=== PATIENT | female | born 1975 | race Caucasian/White ===

== ENCOUNTER 2019-02-22 11:20 | Observation (INO) | payer OTHER ==
[2019-02-22] MEDS ORDERED: SODIUM CHLORIDE 1,000 ML IV STA (12:14)
[2019-02-22] MEDS ORDERED: ONDANSETRON 4 MG/2 ML VIAL IVPB ONE (12:14)
[2019-02-22] MEDS ORDERED: ONDANSETRON 4 MG/2 ML VIAL ONE (12:51)
[2019-02-22 13:15] LABS: BASO % 0.2 % (0-2.0); EOS % 0.4 % (0-4.5); HEMATOCRIT 41.2 % (32.4-45.2); HEMOGLOBIN 13.4 GM/dl (10.7-15.3); LYMPH % 8.5 % (8-40); MCH 30.8 pg (25.7-33.7); MCHC 32.6 g/dl (32.0-36.0); MEAN CELL VOLUME 94.4 fl (80-96); MEAN PLT VOLUME 9.7 fl (7.5-11.1); MONO % 4.8 % (3.8-10.2); NEUT % 86.1 % (42.8-82.8); PLATELET COUNT 222 K/MM3 (134-434); RBC 4.37 M/mm3 (3.60-5.2); RDW 12.6 % (11.6-15.6); WHITE BLOOD COUNT 16.7 K/mm3 (4.0-10.8)
[2019-02-22 13:22] LABS: ALBUMIN 4.2 g/dl (3.4-5.0); ALK PHOS 86 U/L (45-117); ANION GAP 7 MMOL/L (8-16); BILIRUBIN,TOTAL 0.9 mg/dl (0.2-1); BLOOD UREA NITROGEN 10 mg/dl (7-18); CALCIUM 9.2 mg/dl (8.5-10); CHLORIDE 104 mmol/L (98-107); CO2 25 mmol/L (21-32); CREATININE 0.7 mg/dl (0.55-1.3); GLUCOSE,RANDOM 100 mg/dl (74-106); POTASSIUM 3.9 mmol/L (3.5-5.1); SGOT/AST 22 U/L (15-37); SGPT/ALT 23 U/L (13-61); SODIUM 136 mmol/L (136-145); TOT PROT 7.3 g/dl (6.4-8.2)
[2019-02-22 13:55] LABS: LIPASE 112 U/L (73-393)
[2019-02-22 15:16] LABS: EPITHELIAL CELLS 1+ /hpf
--- NOTE | 2019-02-22 18:19 | PDOC ---
History of Present Illness - General Chief Complaint: Pain Stated Complaint: BACK,STOMACH PAIN Time Seen by Provider: 02/22/19 11:24 History Source: Patient Exam Limitations: No Limitations - History of Present Illness Initial Comments: 02/22/19 18:16 CHIEF COMPLAINT: Diffuse abdominal pain with nausea, radiating to the back since this morning HISTORY OF PRESENT ILLNESS: 43-year-old female status post C-sections and hysterectomy, history of ovarian cysts, presents with onset today of diffuse abdominal pain, worse across the lower abdomen, radiating into the back. Patient also states her ears feel clogged, more on the right side. No fever or chills. No diarrhea. No dysuria. No hematuria. Pain is fairly constant, but does wax and wane to a minor degree. It radiates throughout the entire abdomen , but is more significant across the lower abdomen. REVIEW OF SYSTEMS: GENERAL/CONSTITUTIONAL: No fever or chills. No weakness. No weight change. HEAD, EYES, EARS, NOSE AND THROAT: No change in vision. No ear pain or discharge. Right ear feels congested, but not painful. No sore throat. CARDIOVASCULAR: No chest pain or shortness of breath. RESPIRATORY: No cough, wheezing, or hemoptysis. GASTROINTESTINAL: + Positive Nausea. No vomiting or diarrhea. No rectal bleeding. GENITOURINARY: No dysuria, frequency, or change in urination. MUSCULOSKELETAL: No joint or muscle swelling or pain. No neck or back pain. SKIN AND BREASTS: No rash or easy bruising. NEUROLOGIC: No headache, vertigo, loss of consciousness, or loss of sensation. PSYCHIATRIC: No depression or anxiety. ENDOCRINE: No increased thirst. No abnormal weight change. HEMATOLOGIC/LYMPHATIC: No anemia, easy bleeding, or history of blood clots. ALLERGIC/IMMUNOLOGIC: No hives or skin allergy. No latex allergy. Past History - Past Medical History Allergies/Adverse Reactions: Allergies Allergy/AdvReac Type Severity Reaction Status Date / Time No Known Allergies Allergy Verified 02/22/19 11:21 Home Medications: Ambulatory Orders NK [No Known Home Medication] 02/22/19 COPD: No - Surgical History Abdominal Surgery: Yes (RT OVARIAN CYST REMOVED) Other Surgical History: 02/22/19 18:19 sections - Immunization History Immunization Up to Date: No - Suicide/Smoking/Psychosocial Hx Smoking Status: No Smoking History: Never smoked Have you smoked in the past 12 months: No Number of Cigarettes Smoked Daily: 0 Information on smoking cessation initiated: No Hx Alcohol Use: No Drug/Substance Use Hx: No Substance Use Type: None *Physical Exam - Vital Signs Last Vital Signs Temp Pulse Resp BP Pulse Ox 98.4 F 69 20 129/77 99 02/22/19 17:53 02/22/19 17:53 02/22/19 17:53 02/22/19 17:53 02/22/19 17:53 - Physical Exam Comments: 02/22/19 20:09 GENERAL: The patient is awake, alert, and fully oriented, in no acute distress. She is complaining of significant abdominal pain. HEAD: Normal with no signs of trauma. EYES: Pupils equal, round and reactive to light, extraocular movements intact, sclera anicteric, conjunctiva clear. ENT: Ears normal, nares patent, oropharynx clear without exudates. Moist mucous membranes. NECK: Normal range of motion, supple without lymphadenopathy, JVD, or masses. LUNGS: Breath sounds equal, clear to auscultation bilaterally. No wheezes, and no crackles. HEART: Regular rate and rhythm, normal S1 and S2 without murmur, rub or gallop. ABDOMEN: Soft, diffuse tenderness, more on the left lower quadrant and suprapubic region, less in the right lower quadrant, no McBurney's tenderness, no Guzman sign. No abdominal guarding. No rebound tenderness. EXTREMITIES: Normal range of motion, no edema. No clubbing or cyanosis. No cords, erythema, or tenderness. NEUROLOGICAL: Cranial nerves II through XII grossly intact. Normal speech, normal gait. PSYCH: Normal mood, normal affect. SKIN: Warm, Dry, normal turgor, no rashes or lesions noted. ED Treatment Course - LABORATORY CBC & Chemistry Diagram: 02/22/19 12:54 02/22/19 12:54 - ADDITIONAL ORDERS Additional order review: Laboratory Results 02/22/19 02/22/19 14:00 12:54 Sodium 136 Potassium 3.9 Chloride 104 Carbon Dioxide 25 Anion Gap 7 L BUN 10 Creatinine 0.7 Creat Clearance w eGFR 92.22 Random Glucose 100 Calcium 9.2 Total Bilirubin 0.9 AST 22 ALT 23 Alkaline Phosphatase 86 Total Protein 7.3 Albumin 4.2 Lipase 112 Urine Color Yellow Urine Appearance Clear Urine pH 6.0 Urine Protein Negative Urine Glucose (UA) Negative Urine Ketones Trace Urine Blood Trace-lysed Urine Nitrite Negative Urine Bilirubin Negative Urine Urobilinogen 0.2 Ur Leukocyte Esterase Negative Urine RBC 0-3 Urine WBC 0-3 Ur Transition Epith Cell 1+ Urine Bacteria Few 02/22/19 12:54 RBC 4.37 MCV 94.4 MCHC 32.6 RDW 12.6 MPV 9.7 Neutrophils % 86.1 H Lymphocytes % 8.5 Monocytes % 4.8 Eosinophils % 0.4 Basophils % 0.2 - RADIOLOGY Radiology Studies Ordered: Category Date Time Status ABDOMEN & PELVIS CT W/O CONTR [CT] Stat CT Scan 02/22/19 14:36 Completed PELVIS(OTHER) US [US] Stat Ultrasound 02/22/19 16:16 Taken - Medications Given in the ED: ED Medications Discontinued Medications Generic Name Dose Route Start Last Admin Trade Name Freq PRN Reason Stop Dose Admin Sodium Chloride 1,000 mls @ 1,000 mls/hr 02/22/19 12:14 02/22/19 12:55 Normal Saline - IV 02/22/19 13:13 1,000 mls/hr ASDIR STA Administration Ondansetron HCl 4 mg 02/22/19 12:14 02/22/19 12:55 Zofran Injection IVPB 02/22/19 12:15 4 mg ONCE ONE Administration Medical Decision Making - Medical Decision Making 02/22/19 20:10 43-year-old female status post hysterectomy, still has her ovaries. History of prior ovarian cysts. Patient presents with severe abdominal pain, somewhat diffuse, but with focal tenderness in the left lower quadrant and suprapubic region on physical examination. CT scan of the abdomen and pelvis shows a collection in the left adnexal region. Pelvic ultrasound shows a 5.8 x 1.6 x 1.6 tubular structure adjacent to the left ovary consistent with an elongated ovarian cyst or hydrosalpinx. Good blood flow on Doppler imaging was found in the left ovary. White blood cell count is elevated to 16,700 with a left shift. Other laboratory studies are normal. Urinalysis negative for infection. Impression: Ongoing abdominal pain with left adnexal process of uncertain etiology. Patient given Toradol for pain. Blood cultures ordered. Ceftriaxone and Flagyl ordered. SERVICE ORDER TAKER consult requested. Further disposition pending SERVICE ORDER TAKER consult. Patient endorsed to Dr. Johnston at change of shift pending SERVICE ORDER TAKER consult and disposition. Laboratory Results - last 24 hr 02/22/19 02/22/19 02/22/19 12:54 12:54 14:00 WBC 16.7 H RBC 4.37 Hgb 13.4 Hct 41.2 MCV 94.4 MCH 30.8 MCHC 32.6 RDW 12.6 Plt Count 222 MPV 9.7 Absolute Neuts (auto) 14.4 Neutrophils % 86.1 H Lymphocytes % 8.5 Monocytes % 4.8 Eosinophils % 0.4 Basophils % 0.2 Sodium 136 Potassium 3.9 Chloride 104 Carbon Dioxide 25 Anion Gap 7 L BUN 10 Creatinine 0.7 Creat Clearance w eGFR 92.22 Random Glucose 100 Calcium 9.2 Total Bilirubin 0.9 AST 22 ALT 23 Alkaline Phosphatase 86 Total Protein 7.3 Albumin 4.2 Lipase 112 Urine Color Yellow Urine Appearance Clear Urine pH 6.0 Urine Protein Negative Urine Glucose (UA) Negative Urine Ketones Trace Urine Blood Trace-lysed Urine Nitrite Negative Urine Bilirubin Negative Urine Urobilinogen 0.2 Ur Leukocyte Esterase Negative Urine RBC 0-3 Urine WBC 0-3 Ur Transition Epith Cell 1+ Urine Bacteria Few 02/22/19 20:13 *DC/Admit/Observation/Transfer Diagnosis at time of Disposition: Left pelvic adnexal fluid collection - Referrals - Patient Instructions - Post Discharge Activity
[2019-02-22] MEDS ORDERED: KETOROLAC TROMETHAMINE 30 MG/1 ML VIAL IVPUSH ONE (19:14)
[2019-02-22] MEDS ORDERED: KETOROLAC TROMETHAMINE 30 MG/1 ML VIAL ONE (19:15)
[2019-02-22] MEDS ORDERED: SODIUM CHLORIDE 1,000 ML IV SCH (20:30)
[2019-02-22] MEDS ORDERED: CEFTRIAXONE 1,000 MG in DEXTROSE 5%-WATER - 50 ML IVPB ONE (20:30)
[2019-02-22] MEDS ORDERED: cefTRIAXone SODIUM 1 GM VIAL ONE (20:33)
--- NOTE | 2019-02-22 20:36 | PDOC ---
*Physical Exam - Vital Signs Last Vital Signs Temp Pulse Resp BP Pulse Ox 98.4 F 69 20 129/77 99 02/22/19 17:53 02/22/19 17:53 02/22/19 17:53 02/22/19 17:53 02/22/19 17:53 ED Treatment Course - LABORATORY CBC & Chemistry Diagram: 02/22/19 12:54 02/22/19 12:54 - ADDITIONAL ORDERS Additional order review: Laboratory Results 02/22/19 02/22/19 14:00 12:54 Sodium 136 Potassium 3.9 Chloride 104 Carbon Dioxide 25 Anion Gap 7 L BUN 10 Creatinine 0.7 Creat Clearance w eGFR 92.22 Random Glucose 100 Calcium 9.2 Total Bilirubin 0.9 AST 22 ALT 23 Alkaline Phosphatase 86 Total Protein 7.3 Albumin 4.2 Lipase 112 Urine Color Yellow Urine Appearance Clear Urine pH 6.0 Urine Protein Negative Urine Glucose (UA) Negative Urine Ketones Trace Urine Blood Trace-lysed Urine Nitrite Negative Urine Bilirubin Negative Urine Urobilinogen 0.2 Ur Leukocyte Esterase Negative Urine RBC 0-3 Urine WBC 0-3 Ur Transition Epith Cell 1+ Urine Bacteria Few 02/22/19 12:54 RBC 4.37 MCV 94.4 MCHC 32.6 RDW 12.6 MPV 9.7 Neutrophils % 86.1 H Lymphocytes % 8.5 Monocytes % 4.8 Eosinophils % 0.4 Basophils % 0.2 - Medications Given in the ED: ED Medications Discontinued Medications Generic Name Dose Route Start Last Admin Trade Name Freq PRN Reason Stop Dose Admin Sodium Chloride 1,000 mls @ 1,000 mls/hr 02/22/19 12:14 02/22/19 12:55 Normal Saline - IV 02/22/19 13:13 1,000 mls/hr ASDIR STA Administration Ketorolac Tromethamine 30 mg 02/22/19 19:14 02/22/19 19:17 Toradol Injection - IVPUSH 02/22/19 19:15 30 mg ONCE ONE Administration Ondansetron HCl 4 mg 02/22/19 12:14 02/22/19 12:55 Zofran Injection IVPB 02/22/19 12:15 4 mg ONCE ONE Administration Medical Decision Making - Medical Decision Making 02/22/19 21:47 Care of this patient received from Dr. Park. Case discussed with Dr. Chirinos, fellow from reproductive endocrinology division , [facility] gynecology service. Agree with antibiotic coverage; plan is for patient to be seen tomorrow morning by the gynecology service. Case discussed with Dr. Salvador, television news video editor for general surgery.He will see patient tomorrow Patient reports that her pain has improved, now "5/10" from "10/10" when she arrived. *DC/Admit/Observation/Transfer Diagnosis at time of Disposition: Left pelvic adnexal fluid collection - Discharge Dispostion Condition at time of disposition: Stable Decision to Admit order: Yes - Referrals - Patient Instructions - Post Discharge Activity
--- NOTE | 2019-02-22 23:50 | HP ---
CHIEF COMPLAINT: lower abdominal pain PCP: HISTORY OF PRESENT ILLNESS: This is a 43 year old female with a past medical history of R ovarian cyst presented to the ED with lower abdominal pain radiating to her back since this morning. Positive nausea; denies vomiting diarrhea. Denies fever, chills ER course was notable for: (1) CT abd/pel with cystic masslike density in L hemipelvis, prominent appendix without inflammatory changes (2) US with hydrosalpinx vs elongated cyst adjacent to L ovary (3) WBC 16.7 Recent Travel: pt denies PAST MEDICAL HISTORY: R ovarian cyst s/p removal PAST SURGICAL HISTORY: x 3 L ovarian cyst s/p removal and ex-laporotomy hysterectomy secondary to abnormal PAP Social History: 20+ years, no known extramarital affairs Smoking: pt denies Alcohol: occ Drugs: pt denies Family History: mother alive s/p BrCA, has HLD, preDM maternal aunt x 2 s/p ovarian CA father unknown 1 brother alive and well 3 children alive and well Allergies No Known Allergies Allergy (Verified 02/22/19 11:21) HOME MEDICATIONS: 3 Medication Instructions Recorded NK [No Known Home Medication] 02/22/19 REVIEW OF SYSTEMS CONSTITUTIONAL: Absent: fever, chills, diaphoresis, generalized weakness, malaise, loss of appetite, weight change HEENT: Absent: rhinorrhea, nasal congestion, throat pain, throat swelling, difficulty swallowing, mouth swelling, ear pain, eye pain, visual changes CARDIOVASCULAR: Absent: chest pain, syncope, palpitations, irregular heart rate, lightheadedness , peripheral edema RESPIRATORY: Absent: cough, shortness of breath, dyspnea with exertion, orthopnea, wheezing, stridor, hemoptysis GASTROINTESTINAL: Present: abdominal pain, nausea Absent: abdominal distension, vomiting, diarrhea, constipation, melena, hematochezia GENITOURINARY: Absent: dysuria, frequency, urgency, hesitancy, hematuria, flank pain, genital pain MUSCULOSKELETAL: Absent: myalgia, arthralgia, joint swelling, back pain, neck pain SKIN: Absent: rash, itching, pallor HEMATOLOGIC/IMMUNOLOGIC: Absent: easy bleeding, easy bruising, lymphadenopathy, frequent infections ENDOCRINE: Absent: unexplained weight gain, unexplained weight loss, heat intolerance, cold intolerance NEUROLOGIC: Absent: headache, focal weakness or paresthesias, dizziness, unsteady gait, seizure, mental status changes, bladder or bowel incontinence PSYCHIATRIC: Absent: anxiety, depression, suicidal or homicidal ideation, hallucinations. PHYSICAL EXAMINATION Vital Signs - 24 hr 3 02/22/19 02/22/19 02/22/19 11:21 15:21 17:53 Temperature 98.6 F 98.4 F 98.4 F Pulse Rate 74 Pulse Rate [ 66 69 Right] Respiratory 20 20 20 Rate Blood Pressure 124/75 Blood Pressure 123/55 L 129/77 [Left Arm] O2 Sat by Pulse 100 99 99 Oximetry (%) 3 02/22/19 02/22/19 22:27 23:35 Temperature 98.1 F 97.8 F Pulse Rate 64 Pulse Rate [ 65 Right] Respiratory 17 18 Rate Blood Pressure 108/57 L Blood Pressure 105/67 [Left Arm] O2 Sat by Pulse 100 Oximetry (%) GENERAL: Awake, alert, and fully oriented, in no acute distress. HEAD: Normal with no signs of trauma. EYES: Pupils equal, round and reactive to light, extraocular movements intact, sclera anicteric, conjunctiva clear. No lid lag. EARS, NOSE, THROAT: Ears normal, nares patent, oropharynx clear without exudates. Moist mucous membranes. NECK: Normal range of motion, supple without lymphadenopathy, JVD, or masses. LUNGS: Breath sounds equal, clear to auscultation bilaterally. No wheezes, and no crackles. No accessory muscle use. HEART: Regular rate and rhythm, normal S1 and S2 without murmur, rub or gallop. ABDOMEN: Soft, not distended, normoactive bowel sounds, no guarding, no rebound , no masses. No hepatomegaly or splenomegaly. + tenderness, localizes to LLQ MUSCULOSKELETAL: Normal range of motion at all joints. No bony deformities or tenderness. No CVA tenderness. UPPER EXTREMITIES: 2+ pulses, warm, well-perfused. No cyanosis. No clubbing. No peripheral edema. LOWER EXTREMITIES: 2+ pulses, warm, well-perfused. No calf tenderness. No peripheral edema. NEUROLOGICAL: Cranial nerves II-XII intact. Normal speech. Normal gait. PSYCHIATRIC: Cooperative. Good eye contact. Appropriate mood and affect. SKIN: Warm, dry, normal turgor, no rashes or lesions noted, normal capillary refill. Laboratory Results - last 24 hr 3 02/22/19 02/22/19 02/22/19/06/19 12:54 12:54 14:00 20:44 WBC 16.7 H RBC 4.37 Hgb 13.4 Hct 41.2 MCV 94.4 MCH 30.8 MCHC 32.6 RDW 12.6 Plt Count 222 MPV 9.7 Absolute Neuts (auto) 14.4 Neutrophils % 86.1 H Lymphocytes % 8.5 Monocytes % 4.8 Eosinophils % 0.4 Basophils % 0.2 Sodium 136 Potassium 3.9 Chloride 104 Carbon Dioxide 25 Anion Gap 7 L BUN 10 Creatinine 0.7 Creat Clearance w eGFR 92.22 Random Glucose 100 Lactic Acid 0.9 Calcium 9.2 Total Bilirubin 0.9 AST 22 ALT 23 Alkaline Phosphatase 86 Total Protein 7.3 Albumin 4.2 Lipase 112 Urine Color Yellow Urine Appearance Clear Urine pH 6.0 Urine Protein Negative Urine Glucose (UA) Negative Urine Ketones Trace Urine Blood Trace-lysed Urine Nitrite Negative Urine Bilirubin Negative Urine Urobilinogen 0.2 Ur Leukocyte Esterase Negative Urine RBC 0-3 Urine WBC 0-3 Ur Transition Epith Cell 1+ Urine Bacteria Few Radiology Reports CT abdomen/pelvis without contrast IMPRESSION: Adequately distended gallbladder with multiple intraluminal stones and without gross wall thickening or pericholecystic with. Abnormal appearing prominent appendix measuring 11 mm in diameter without surrounding inflammatory changes, free fluid or extraluminal air to suggest acute appendicitis. Clinical correlation and surgical consult is suggested Cystic masslike density in the left hemipelvis measuring 5.3 x 3.6 cm with a lobulated contour and likely septations. A couple of adjacent surgical metallic clips are present. Findings are suggestive of an ovarian/adnexal cyst. However, since the uterus is not visualized, a lymphocele is in the differential diagnosis for a post hysterectomy patient. Correlation with pelvis ultrasound may be helpful for further evaluation. There is also suggestion of thickening of the vaginal wall. Please correlate with physical exam. Reported By: Matthias Saravia MD 02/22/19 0137 Pelvic US THIS IS A PRELIMINARY REPORT FROM IMAGING HERB COUNSELOR DATE OF SERVICE: 2019-02-22 16:37:55 Impression: 1. Uterus not visualized, consistent with patient's surgical history. 2. Hydrosalpinx versus elongated cyst adjacent to the left ovary. 3. No evidence of ovarian torsion. THIS DOCUMENT HAS BEEN ELECTRONICALLY SIGNED Luis Manuel Hammond MD 02/22/2019 19:55 EST ASSESSMENT/PLAN: 43yF with PMH ovarian cyst s/p removal, abnormal PAP s/p hysterectomy presented to the ED with lower abdominal pain. Adnexal/ovarian cyst--possible hydrosalpinx vs elongated cyst adjacent to the left ovary - RECONCILIATION ANALYST consult-ED d/w Dr. Chirinos, fellow from reproductive endocrinology division , [facility] gynecology service - will treat with ceftriaxone/flagyl for hydrosalpinx given leukocytosis although suspicion is low for PID - trend WBC, fever - NPO after midnight Prominent appendix - surgical consult- ED d/w Dr. Salvador DVT PPX - deferred as anticipated LOS <48h FEN - NS @ 100cc/hr while NPO - BMP in am, replete lytes as indicated - NPO after midnight Dispo: pt currently requires further observation for management of her emergent condition. Visit type - Emergency Visit Emergency Visit: Yes ED Registration Date: 02/22/19 Care time: The patient presented to the Emergency Department on the above date and was hospitalized for further evaluation of their emergent condition. - New Patient This patient is new to me today: Yes Date on this admission: 02/22/19 - Critical Care Critical Care patient: No
[2019-02-23 00:52] VITALS: BMI 28.5
--- NOTE | 2019-02-23 09:17 | CONSULT ---
- Consultation REQUESTING PROVIDER: Preston BAHENA CONSULT REQUEST: We have been asked to surgically evaluate this patient for abdominal pain. PCP:KEILA Stevens HISTORY OF PRESENT ILLNESS: BRANDON who is a 43 y/o female who presented to the [facility] with 10/10 lower abdominal pain w/some associated nausea w/o vomiting; it started suddenly; pain was not increased or decreased by anything and was sharp in nature; she has no GI//LARRIMAN c/o o/w. Pain was constant and more localized to the LLQ; she states today she feels better and wants to eat and go home; she had no anorexia when the pain started and it was not associated w/food intake. She has had recent routine L[place]IM[place] evaluation. She was started on antibiotics in the ER at the advice of the LARRIMAN franchise consultant. PMHx: none PSHx: ovarian cystectomy/supracervical hysterectomyC-S Home Medications Medication Instructions Recorded NK [No Known Home Medication] 02/22/19 Allergies Allergy/AdvReac Type Severity Reaction Status Date / Time No Known Allergies Allergy Verified 02/22/19 11:21 REVIEW OF SYSTEMS: CONSTITUTIONAL: Absent: fever, chills, diaphoresis, generalized weakness, malaise, loss of appetite, weight change CARDIOVASCULAR: Absent: chest pain, syncope, palpitations, irregular heart rate, lightheadedness , peripheral edema RESPIRATORY: Absent: cough, shortness of breath, dyspnea with exertion, wheezing, stridor, hemoptysis GASTROINTESTINAL: Absent: abdominal pain, abdominal distension, nausea, vomiting, diarrhea, constipation, melena, hematochezia GENITOURINARY: Absent: dysuria, frequency, urgency, hesitancy, hematuria, flank pain, genital pain Present: ovarian and uterine issues MUSCULOSKELETAL: Absent: myalgia, arthralgia, joint swelling, back pain, neck pain SKIN: Absent: rash, itching, pallor HEMATOLOGIC/IMMUNOLOGIC: Absent: easy bleeding, easy bruising, lymphadenopathy NEUROLOGIC: Absent: headache, focal weakness, paresthesias, dizziness, unsteady gait, seizure, mental status changes, bladder or bowel incontinence PSYCHIATRIC: Absent: anxiety, depression, suicidal or homicidal ideation, hallucinations. PHYSICAL EXAM: GENERAL: Awake, alert, and fully oriented, in no acute distress. HEAD: Normal with no signs of trauma. EYES: clera anicteric, conjunctiva clear. NECK: Normal ROM, supple without lymphadenopathy, JVD, or masses. ABDOMEN: Soft, slight tenderness LLQ, not distended, normoactive bowel sounds, no guarding, no rebound, no masses. No organomegaly. Rovsings; psoas and obturator signs are absent. No hernias. MUSCULOSKELETAL: Normal ROM at all joints. No bony deformities or tenderness. No CVA tenderness. UPPER EXTREMITIES: 2+ pulses, warm, well-perfused. No cyanosis. Cap refill <2 seconds. No peripheral edema. LOWER EXTREMITIES: 2+ pulses, warm, well-perfused. No calf tenderness. No peripheral edema. NEUROLOGICAL: Normal speech, gait not observed. PSYCH: Cooperative. Good eye contact. Appropriate mood and affect. SKIN: Warm, dry, normal turgor, no rashes or lesions noted. Vital Signs Temperature 98.3 F 02/23/19 04:01 Pulse Rate 63 02/23/19 07:09 Respiratory Rate 18 02/23/19 08:09 Blood Pressure 98/56 L 02/23/19 07:09 O2 Sat by Pulse Oximetry (%) 100 02/23/19 00:38 Lab Results WBC 16.7 K/mm3 (4.0-10.8) H 02/22/19 12:54 RBC 4.37 M/mm3 (3.60-5.2) 02/22/19 12:54 Hgb 13.4 GM/dl (10.7-15.3) 02/22/19 12:54 Hct 41.2 % (32.4-45.2) 02/22/19 12:54 MCV 94.4 fl (80-96) 02/22/19 12:54 MCHC 32.6 g/dl (32.0-36.0) 02/22/19 12:54 RDW 12.6 % (11.6-15.6) 02/22/19 12:54 Plt Count 222 K/MM3 (134-434) 02/22/19 12:54 Sodium 136 mmol/L (136-145) 02/22/19 12:54 Potassium 3.9 mmol/L (3.5-5.1) 02/22/19 12:54 Chloride 104 mmol/L (98-107) 02/22/19 12:54 Carbon Dioxide 25 mmol/L (21-32) 02/22/19 12:54 Anion Gap 7 MMOL/L (8-16) L 02/22/19 12:54 BUN 10 mg/dl (7-18) 02/22/19 12:54 Creatinine 0.7 mg/dl (0.55-1.3) 02/22/19 12:54 Random Glucose 100 mg/dl (74-106) 02/22/19 12:54 Calcium 9.2 mg/dl (8.5-10) 02/22/19 12:54 CT sacn a/p and US reviewed IMP: doubt appendicitis by hx./PE and imaging which shows no signs of an inflammatory process in the RLQ PLAN: LARRIMAN evaluation was requested and is pending; if no contraindication after LARRIMAN evaluation would advance diet as tolerated. Jah Salvador MD FACS
[2019-02-23 09:20] LABS: ANION GAP 8 MMOL/L (8-16); BASO % 0.5 % (0-2.0); BLOOD UREA NITROGEN 11 mg/dl (7-18); CALCIUM 8.2 mg/dl (8.5-10); CHLORIDE 107 mmol/L (98-107); CO2 25 mmol/L (21-32); CREATININE 0.9 mg/dl (0.55-1.3); EOS % 2.3 % (0-4.5); GLUCOSE,RANDOM 95 mg/dl (74-106); HEMATOCRIT 36.8 % (32.4-45.2); LYMPH % 29.9 % (8-40); MAGNESIUM 1.9 mg/dL (1.8-2.4); MCH 30.4 pg (25.7-33.7); MCHC 32.5 g/dl (32.0-36.0); MEAN CELL VOLUME 93.4 fl (80-96); MEAN PLT VOLUME 10.1 fl (7.5-11.1); MONO % 9.7 % (3.8-10.2); NEUT % 57.6 % (42.8-82.8); PHOSPHOROUS 3.6 mg/dl (2.5-4.9); PLATELET COUNT 189 K/MM3 (134-434); RBC 3.94 M/mm3 (3.60-5.2); RDW 12.6 % (11.6-15.6); SODIUM 140 mmol/L (136-145); WHITE BLOOD COUNT 7.8 K/mm3 (4.0-10.8)
--- NOTE | 2019-02-23 09:58 | PN ---
Physical Exam: SUBJECTIVE: Patient seen and examined, rates abd pain 4/10. denies n/v, pt reports pain has improved OBJECTIVE: Vital Signs Period Temp Pulse Resp BP Sys/Escobar Pulse Ox Last 24 Hr 97.8 F-98.6 F 63-74 17-20 97-129/54-77 99-100 GENERAL: The patient is awake, alert, and fully oriented, in no acute distress. HEAD: Normal with no signs of trauma. EYES: PERRL, extraocular movements intact, sclera anicteric, conjunctiva clear. No ptosis. ENT: Ears normal, nares patent, oropharynx clear without exudates, moist mucous membranes. NECK: Trachea midline, full range of motion, supple. LUNGS: Breath sounds equal, clear to auscultation bilaterally, no wheezes, no crackles, no accessory muscle use. HEART: Regular rate and rhythm, S1, S2 without murmur, rub or gallop. ABDOMEN: Soft, nontender, nondistended, normoactive bowel sounds, no guarding, no rebound, no hepatosplenomegaly, no masses. EXTREMITIES: 2+ pulses, warm, well-perfused, no edema. NEUROLOGICAL: Cranial nerves II through XII grossly intact. Normal speech, gait not observed. PSYCH: Normal mood, normal affect. SKIN: Warm, dry, normal turgor, no rashes or lesions noted Laboratory Results - last 24 hr 02/22/19 02/22/19 02/22/19 12:54 12:54 14:00 WBC 16.7 H RBC 4.37 Hgb 13.4 Hct 41.2 MCV 94.4 MCH 30.8 MCHC 32.6 RDW 12.6 Plt Count 222 MPV 9.7 Absolute Neuts (auto) 14.4 Neutrophils % 86.1 H Lymphocytes % 8.5 Monocytes % 4.8 Eosinophils % 0.4 Basophils % 0.2 Sodium 136 Potassium 3.9 Chloride 104 Carbon Dioxide 25 Anion Gap 7 L BUN 10 Creatinine 0.7 Creat Clearance w eGFR 92.22 Random Glucose 100 Lactic Acid Calcium 9.2 Phosphorus Magnesium Total Bilirubin 0.9 AST 22 ALT 23 Alkaline Phosphatase 86 Total Protein 7.3 Albumin 4.2 Lipase 112 Urine Color Yellow Urine Appearance Clear Urine pH 6.0 Urine Protein Negative Urine Glucose (UA) Negative Urine Ketones Trace Urine Blood Trace-lysed Urine Nitrite Negative Urine Bilirubin Negative Urine Urobilinogen 0.2 Ur Leukocyte Esterase Negative Urine RBC 0-3 Urine WBC 0-3 Ur Transition Epith Cell 1+ Urine Bacteria Few 02/22/19 02/23/19 02/23/19 20:44 06:15 06:15 WBC 7.8 RBC 3.94 Hgb 12.0 Hct 36.8 MCV 93.4 MCH 30.4 MCHC 32.5 RDW 12.6 Plt Count 189 MPV 10.1 Absolute Neuts (auto) 4.5 Neutrophils % 57.6 Lymphocytes % 29.9 Monocytes % 9.7 Eosinophils % 2.3 Basophils % 0.5 Sodium 140 Potassium 4.0 Chloride 107 Carbon Dioxide 25 Anion Gap 8 BUN 11 Creatinine 0.9 Creat Clearance w eGFR 69.00 Random Glucose 95 Lactic Acid 0.9 Calcium 8.2 L Phosphorus 3.6 Magnesium 1.9 Total Bilirubin AST ALT Alkaline Phosphatase Total Protein Albumin Lipase Urine Color Urine Appearance Urine pH Urine Protein Urine Glucose (UA) Urine Ketones Urine Blood Urine Nitrite Urine Bilirubin Urine Urobilinogen Ur Leukocyte Esterase Urine RBC Urine WBC Ur Transition Epith Cell Urine Bacteria Active Medications Generic Name Dose Route Start Last Admin Trade Name Freq PRN Reason Stop Dose Admin Sodium Chloride 1,000 mls @ 100 mls/hr 02/22/19 20:30 02/22/19 20:44 Normal Saline - IV 100 mls/hr ASDIR KORINA Administration Ceftriaxone Sodium 1 gm/ 50 mls @ 100 mls/hr 02/23/19 22:00 Dextrose IVPB 03/01/19 21:59 HS KORINA Protocol Metronidazole 500 mg in 100 mls @ 100 mls/hr 02/23/19 02:00 02/23/19 09:23 Flagyl 500mg Premixed Ivpb - IVPB 100 mls/hr Q8H-IV KORINA Administration ASSESSMENT/PLAN: 43yF with PMH ovarian cyst s/p removal, abnormal PAP s/p hysterectomy presented to the ED with lower abdominal pain. #Adnexal/ovarian cyst--possible hydrosalpinx vs elongated cyst adjacent to the left ovary - [employer] consult-ED d/w Dr. Chirinos, fellow from reproductive endocrinology division , [facility] gynecology service - c/w ceftriaxone/flagyl for hydrosalpinx given leukocytosis although suspicion is low for PID - trend WBC, fever-afebrile, WBC today 7.8 - NPO after midnight #Prominent appendix - surgical note appreciated-imaging and examined patient, doubt appendicitis DVT PPX - deferred as anticipated LOS <48h FEN - NS @ 100cc/hr while NPO - BMP in am, replete lytes as indicated - NPO after midnight Dispo: pt currently requires further observation for management of her emergent condition. Visit type - Emergency Visit Emergency Visit: Yes ED Registration Date: 02/22/19 Care time: The patient presented to the Emergency Department on the above date and was hospitalized for further evaluation of their emergent condition. - New Patient This patient is new to me today: Yes Date on this admission: 02/23/19 - Critical Care Critical Care patient: No
[2019-02-23 14:10] VITALS: BP 99/58; PULSE 75; TEMP 98.2
--- NOTE | 2019-02-23 15:58 | DS ---
Physical Exam: SUBJECTIVE: Patient seen and examined, pt seen by [facility] this afternoon, possible infectious process with fluid in fallopian tube, improved with IV abt, pt stable for discharge, switch to oral abd OBJECTIVE: Vital Signs Period Temp Pulse Resp BP Sys/Escobar Pulse Ox Last 24 Hr 97.8 F-98.4 F 63-75 16-20 97-129/54-77 99-100 PHYSICAL EXAM GENERAL: The patient is awake, alert, and fully oriented, in no acute distress. HEAD: Normal with no signs of trauma. EYES: PERRL, extraocular movements intact, sclera anicteric, conjunctiva clear. ENT: Ears normal, nares patent, oropharynx clear without exudates, moist mucous membranes. NECK: Trachea midline, full range of motion, supple. LUNGS: Breath sounds equal, clear to auscultation bilaterally, no wheezes, no crackles, no accessory muscle use. HEART: Regular rate and rhythm, S1, S2 without murmur, rub or gallop. ABDOMEN: Soft, nontender, nondistended, normoactive bowel sounds, no guarding, no rebound, no hepatosplenomegaly, no masses. EXTREMITIES: 2+ pulses, warm, well-perfused, no edema. NEUROLOGICAL: Cranial nerves II through XII grossly intact. Normal speech, gait not observed. PSYCH: Normal mood, normal affect. SKIN: Warm, dry, normal turgor, no rashes or lesions noted. LABS Laboratory Results - last 24 hr 02/22/19 02/23/19 02/23/19 20:44 06:15 06:15 WBC 7.8 RBC 3.94 Hgb 12.0 Hct 36.8 MCV 93.4 MCH 30.4 MCHC 32.5 RDW 12.6 Plt Count 189 MPV 10.1 Absolute Neuts (auto) 4.5 Neutrophils % 57.6 Lymphocytes % 29.9 Monocytes % 9.7 Eosinophils % 2.3 Basophils % 0.5 Sodium 140 Potassium 4.0 Chloride 107 Carbon Dioxide 25 Anion Gap 8 BUN 11 Creatinine 0.9 Creat Clearance w eGFR 69.00 Random Glucose 95 Lactic Acid 0.9 Calcium 8.2 L Phosphorus 3.6 Magnesium 1.9 HOSPITAL COURSE: Date of Admission:02/22/19 Date of Discharge: 02/23/19 43yF with PMH ovarian cyst s/p removal, abnormal PAP s/p hysterectomy presented to the ED with lower abdominal pain. #Adnexal/ovarian cyst--possible hydrosalpinx vs elongated cyst adjacent to the left ovary - [facility] note appreciated, unsure of cause of fluid in fallopian tube, pt clinically looks stable for discharge, - treated with IV ceftriaxone/flagyl for hydrosalpinx given leukocytosis although suspicion is low for PID - trend WBC, fever-afebrile, WBC today 7.8 -dc with oral flagyl 500mg daily, augmentin 500/125mg BID x 7 days #Prominent appendix - surgical note appreciated-imaging and examined patient, doubt appendicitis -started on diet- tolerating patient advised to follow up with [facility], PCP this week Discharge Summary Reason For Visit: LEFT PELVIC ADNEXAL FLUID COLLECTION - Instructions Diet, Activity, Other Instructions: please follow up with [facility] and PCP 1-2 days Take antibiotics as directed Tylenol 650mg every 6 hours as needed for pain Disposition: HOME - Home Medications Comprehensive Discharge Medication List: Ambulatory Orders Amox-Tr/K Cl [Augmentin - 500Mg Tablet] 1 tab PO BID #14 tab 02/23/19 metroNIDAZOLE [Flagyl -] 500 mg PO DAILY 7 Days #7 tablet 02/23/19
[2019-02-23] MEDS ORDERED: CEFTRIAXONE 1 GM in DEXTROSE 5%-WATER - 50 ML IVPB SCH (22:00)
== END 2019-02-23 16:30 | disposition home or self-care (01) ==
LOC: FER 11:20 → UNDOADMIN 20:39 → FM/S 20:39 → INTOOBSV 23:57 → FM/S 23:57
PROVIDERS: ADMIT Internal Medicine; ATTEND Nurse Practitioner Family
PROC: 3E03329 Introduction of Other Anti-infective into Peripheral Vein, Percutaneous Approach (ICD-10-PCS; principal; 2019-02-22)
PROC: 3E0333Z Introduction of Anti-inflammatory into Peripheral Vein, Percutaneous Approach (ICD-10-PCS; 2019-02-22)
PROC: 3E033GC Introduction of Other Therapeutic Substance into Peripheral Vein, Percutaneous Approach (ICD-10-PCS; 2019-02-22)
PROC: 3E0337Z Introduction of Electrolytic and Water Balance Substance into Peripheral Vein, Percutaneous Approach (ICD-10-PCS; 2019-02-22)
DX: R18.8 Other ascites (principal); Z90.710 Acquired absence of both cervix and uterus; N83.202 Unspecified ovarian cyst, left side; K38.8 Other specified diseases of appendix
CPT/HCPCS: 36415; 74176-TC; 76856-TC; 80048; 80053; 81003; 81015; 83605; 83690; 83735; 84100; 85025; 87040; 99285-25; G0378; J7030

== ENCOUNTER 2020-09-03 05:15 | Day surgery (SDC) | payer OTHER ==
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
[2020-09-02 14:51] VITALS: BMI 26.6
[~2020-09-03 05:15] MED LIST: LIDOCAINE 1%/EPI 1:100000 (20 ML MULTI DOSE VIAL) IJ ONE
--- OUTSIDE RECORDS SUMMARY | 2020-09-03 05:19 | XMS ---
:1975 Author Organization [facility] Care Team Providers Name Role Phone ROXANNE Sawyer Unavailable Unavailable Thalappillil, Alaina PALM AND BACK FORGER Unavailable Unavailable Thalappillil, Alaina PALM AND BACK FORGER Unavailable Unavailable Thalappillil, Alaina PALM AND BACK FORGER Unavailable Unavailable Thalappillil, Alaina PALM AND BACK FORGER Unavailable Unavailable Thalappillil, Alaina PALM AND BACK FORGER Unavailable Unavailable Thalappillil, Alaina PALM AND BACK FORGER Unavailable Unavailable Thalappillil, Alaina PALM AND BACK FORGER Unavailable Unavailable Thalappillil, Alaina PALM AND BACK FORGER Unavailable Unavailable Thalappillil, Alaina PALM AND BACK FORGER Unavailable Unavailable ED STAFF PHYSICIAN, STAFF Unavailable Unavailable ED STAFF PHYSICIANRYLEE Unavailable Unavailable Re-disclosure Warning The records that [...] is protected by Article 27-F of the [facility] Public Health law. If you continue you may haveaccess to information: Regarding HIV / AIDS; Provided by facilities licensed or operated by the [facility] Office of Mental Health; or Provided by the [facility] Office for People With Developmental Disabilities. If such information is present, then the following [facility] mandated warning applies: This information has [...] law may result in a fine or care home sentence or both. A general authorization for the release of medical or other information is NOT sufficient authorization for further disclosure. Encounters Encounter Providers Location Date Indications Data Source(s ) Outpatient Attender: Alaina Bustamante 02/16/2020 [facility] 12:49:00 Medical [facility] er FNPAdmitter: Alaina DE LUNA EDT Thalcristyillil FNPReferrer: Alaina PEDRAZA Outpatient Attender: Alaina Bustamante 11/05/2019 [facility] 09:21:00 Medical [facility] er FNPAdmitter: Alaina MORGAN Thalappillil FNPReferrer: Alaina ACEVESP (CPE) Annual/CPE [place] 10/08/2019 eCW3 ([facility] 12:00:00 [facility] A28 AM EST - Care) 10/08/2019 12:00:00 AM EST Emergency Attender: RYLEE DELATORRE H 10/03/2019 [facility] STAFF 05:26:00 Medical Center PHYSICIANAttender: PM EST - GRAVES MELVA 10/03/2019 WAttender: STAFF 09:56:00 ED STAFF PM EST PHYSICIANAdmitter: RYLEE ED STAFF PHYSICIAN Patient discharged. Medications Medication Brand Start Product Dose Route Administrative Pharmacy St atus Indications Reaction Description Data Name Date Form Instructions Instructions Source(s) Amoxicillin Amoxic .0 suspend Amoxic illin- eCW3 875 MG / illin- 2020 {tabl ed Pot ([place] Clavulanate Pot 12:00: et} Clavulanate [place] 125 MG Oral Clavul 00 AM 875-125 MG Health Tablet anate EDT Care) Amoxicillin 875-12 -Pot 5 MG Clavulanate 875-125 MG Ondansetron Ondans .0 suspend Ondans etron eCW3 4 MG Oral etron 2019 {tabl ed HCl 4 MG (Hud son Tablet HCl 4 12:00: et} [place] Ondansetron MG 00 AM Health HCl 4 MG EDT Care) Insurance Providers Payer name Policy type Policy ID Covered Covered democrat's Policy P erna / Coverage democrat ID relationship to [employer] ormation type [place] LOCAL [id number] - [id number] [facility] O LOCAL 1199 O [id number] 01 [id number] 15 O Problems, Conditions, and Diagnoses Code Display Name Description Problem Type Effective Data Sour ce(s) Dates R73.03 Prediabetes Prediabetes Problem 01/21/2020 eCW3 ([facility] 12:00:00 AM [facility] EST Care) R92.8 Other abnormal and OTH ABN AND Diagnosis 02/16/2020 [facility] inconclusive INCONCLUSIVE 12:49:00 PM Medical C enter findings on FINDINGS ON DX EDT diagnostic imaging IMAGING OF BREAST of breast Z12.31 Encounter for ENCNTR SCREEN Diagnosis 11/05/2019 [facility] screening MAMMOGRAM FOR 09:21:00 AM Medical Ce nter mammogram for MALIGNANT EST malignant neoplasm NEOPLASM OF of breast BREAST Y99.9 Unspecified UNSPECIFIED Diagnosis 10/03/2019 [facility] external cause EXTERNAL CAUSE 05:26:00 PM Medic al Center status STATUS EST Y92.[address] THE PLACE Diagnosis 10/03/2019 [facility] of occurrence of OF OCCURRENCE OF 05:26:00 PM edical Center the external cause THE EXTERNAL EST CAUSE Y93.9 Activity, ACTIVITY, Diagnosis 10/03/2019 [facility] unspecified UNSPECIFIED 05:26:[address] EST W23.0XXA Caught, crushed, CAUGHT, CRUSH, Diagnosis 10/03/2019 [facility] jammed, or pinched JAMMED, OR 05:26:00 PM Medic al Center between moving PINCHED BETW EST objects, initial MOVING OBJECTS, encounter INIT S60.022A Contusion of left CONTUSION OF LEFT Diagnosis 10/03/2019 [facility] index finger INDEX FINGER W/O 05:26:00 PM Medic al Center without damage to DAMAGE TO NAIL, EST nail, initial INIT encounter Results ID Date Data Source [id number] 08/29/2020 12:00:00 PM EDT [facility] Name Value Range Interpretation Description Data Sup porting Code Source(s) Document(s ) SARS [facility] coronavirus 2 RNA This lab was ordered by [facility] and reported by [facility]. Procedure Social History Code Duration Value Status Description Data Source(s ) Smoking 07/21/2020 Never Smoker completed Never Smoker eCW3 ([facility] on 12:00:00 AM T [facility]) Smoking 10/03/2019 Denies Ever completed Denies Ever Smoked [facility] 07:20:00 PM EST Smoked Medical C enter Smoking 10/03/2019 Denies Ever completed Denies Ever Smoked [facility] 06:29:00 PM EST Smoked Medical C enter Smoking 10/03/2019 Denies Ever completed Denies Ever Smoked [facility] 05:34:00 PM EST Smoked Medical C enter Vital Signs ID Date Data Source UNK Name Value Range Interpretation Code Description Data Source(s) Diastolic blood 69 mm[Hg] 69 mm[Hg] eCW3 ([facility]) Systolic blood 111 mm[Hg] 111 mm[Hg] [facility]) Body temperature 97.6 [degF] 97.6 [degF] eCW3 ( [facility]) Heart rate 18 /min 18 /min eCW3 ([facility]) Body mass index 28.48 kg/m2 28.48 kg/m2 eCW3 ([facility] (BMI) [Ratio] [facility]) Body weight 141 [lb_av] 141 [lb_av] eCW3 ([facility]) Body height 59 [in_i] 59 [in_i] eCW3 ([facility]) Body temperature 36.311741 36.872853 [facility] Respiratory rate 18 /min 18 /min [facility] Heart rate 76 /min 76 /min [facility] Diastolic blood 81 mm[Hg] 81 mm[Hg] [facility] Systolic blood 123 mm[Hg] 123 mm[Hg] [facility] Body temperature 36.017264 36.359718 [facility] Respiratory rate 20 /min 20 /min [facility] Oxygen saturation 100 % 100 % [facility] in Arterial blood [facility] by Pulse oximetry Heart rate 71 /min 71 /min [facility] Diastolic blood 86 mm[Hg] 86 mm[Hg] [facility] Systolic blood 137 mm[Hg] 137 mm[Hg] [facility]
[2020-09-03] MEDS ORDERED: LIDOCAINE 1%/EPI 1:100000 (50 ML MULTI DOSE VIAL) ONE (07:23)
[2020-09-03] MEDS ORDERED: PROPOFOL 20 ML ONE ×4 (07:27→09:11)
[2020-09-03] MEDS ORDERED: MIDAZOLAM HCL 2 MG/2 ML SINGLE DOSE VIAL ONE (07:27)
[2020-09-03] MEDS ORDERED: SUCCINYLCHOLINE CHLORIDE 200 MG/10 ML SYRINGE ONE (09:02)
[2020-09-03] MEDS ORDERED: LIDOCAINE 1%/EPI 1:100000 (20 ML MULTI DOSE VIAL) IJ ONE (09:46)
--- NOTE | 2020-09-03 10:04 | HP ---
History & Physical Update - History History: No Change - Physical Physical: No Change - Assessment Assessment: No Change - Plan Plan: No Change
--- NOTE | 2020-09-03 10:14 | OP ---
Operative Note - Note: Operative Date: 09/03/20 Pre-Operative Diagnosis: right antecubital soft tissue mass Operation: Excision biopsy right antecubital mass Findings: 2.5 cm lipoma Post-Operative Diagnosis: Same as Pre-op Surgeon: James Garcia Anesthesia: Local, MAC Estimated Blood Loss (mls): 15 Operative Report Dictated: Yes
[2020-09-03] MEDS ORDERED: ONDANSETRON 4 MG/2 ML VIAL ONE (10:18)
[2020-09-03 12:15] VITALS: TEMP 97.1
[2020-09-03] MEDS ORDERED: oxyCODONE HCL 5 MG TABLET PO PRN (12:41)
[2020-09-03] MEDS ORDERED: ONDANSETRON 4 MG/2 ML VIAL IVPUSH PRN (12:41)
[2020-09-03] MEDS ORDERED: LACTATED RINGERS SOLUTION 1,000 ML IV SCH (12:45)
[2020-09-03 13:20] VITALS: BP 120/60; PULSE 72
--- NOTE | 2020-09-03 19:12 | OP ---
DATE OF OPERATION: 09/03/2020 PROCEDURE: Excision biopsy of right antecubital soft tissue mass. PREOPERATIVE DIAGNOSIS: Right antecubital soft tissue mass. POSTOPERATIVE DIAGNOSIS: Right antecubital submuscular soft tissue mass (2.5-cm lipoma). SURGEON: James Garcia MD. ANESTHESIA: Local with sedation. FINDINGS ON PROCEDURE: This is a 45-year-old female who presents with painful and uncomfortable soft tissue mass of the right antecubital area, for which ultrasound revealed 2.7-cm mass suspicious for lipoma. On physical examination, patient has an ill-defined 2.5-cm mass at the antecubital area lateral to the brachial artery. So due to the symptoms, the patient was advised excisional biopsy of the mass, and consent was obtained after discussion of the risks, benefits, and alternatives of the procedure. DESCRIPTION OF PROCEDURE: Patient was brought to the operating room and placed in supine position with the right arm abducted 90 degrees on an arm board. Intravenous sedation was given by the anesthesia team. The operative site was prepped and draped in the usual sterile fashion using lidocaine 1% with epinephrine. Local anesthesia was administered to the proposed incision site. A 3-cm skin crease incision over the antecubital area was made using scalpel blade number 15 with dissection carried down to the subcutaneous tissue. Further dissection using Bovie cautery combined with Metzenbaum scissors was done until the mass was encountered under the biceps tendon. The mass was noted to be attached deep to the foerearm muscles. The mass was carefully dissected away from the brachial artery and dissected towards its attachment using combined Metzenbaum scissors and peanut dissection. The mass was completely excised. The antecubital vein which was inadvertently punctured was tied off with brachial 2-0 ligature and further hemostasis was achieved using Bovie cautery. The wound was then closed with interrupted Vicryl Polysorb 3-0 suture for the dermis and continuous Biosyn 4-0 suture for the subcuticular layer. The wound closure was reinforced with Steri-Strips and covered with sterile dressing. The patient was then transferred to the post anesthesia care unit in satisfactory condition. Estimated blood loss was about 15 mL. Wound class clean. Fitz [id number] [facility]
--- NOTE | 2020-09-06 16:03 | PATH ---
Surgical Pathology Report Patient Name: CESAR MARSHALL [facility]. Rec. #: [id number] /Age/Gender: 1975 (Age: 45) / F Account: [id number] Location: [facility] SURGICAL Taken: 09/03/2020 Received: 09/03/2020 Reported: 09/06/2020 Physicians: James Garcia M.D. Specimen(s) Received RIGHT ANTECUBITAL MASS Clinical History Right antecubital mass Final Diagnosis RIGHT ANTECUBITAL MASS, EXCISION: FIBROADIPOSE TISSUE, SUGGESTIVE OF FIBROLIPOMA. Electronically Signed Anton Laboy M.D. Gross Description Received in formalin labeled "right antecubital mass," is a 3.7 x 2.5 x 0.5 cm aggregate of red-yellow, lobulated soft tissue. The specimen is submitted in toto in 2 cassettes. DL/09/03/2020 saudi/09/03/2020
== END 2020-09-03 13:37 | disposition home or self-care (01) ==
LOC: JASU-SURG 05:15
PROVIDERS: ATTEND Surgery
PROC: 0KB70ZZ Excision of Right Upper Arm Muscle, Open Approach (ICD-10-PCS; principal; 2020-09-03 08:00)
DX: D17.9 Benign lipomatous neoplasm, unspecified (principal)
CPT/HCPCS: 88304-TC; 94760

== ENCOUNTER 2022-02-21 09:26 | Day surgery (SDC) | payer OTHER ==
[~2022-02-21 09:26] MED LIST changes: +BUPIVACAINE HCL/PF 0.5% (5MG/ML) 10 ML VIAL IJ ONE; -LIDOCAINE 1%/EPI 1:100000 (20 ML MULTI DOSE VIAL) IJ ONE
[2022-02-21 09:47] VITALS: BMI 28.3
[2022-02-21] MEDS ORDERED: ACETAMINOPHEN 500 MG TABLET (FP) PO ONE (10:09)
[2022-02-21] MEDS ORDERED: ACETAMINOPHEN 325 MG TABLET (FP) ONE (10:16)
[2022-02-21 11:12] LABS: BILIRUBIN,TOTAL 1.1 mg/dl (0.2-1); CALCIUM 8.8 mg/dl (8.5-10); CREATININE 0.7 mg/dl (0.55-1.3); TOT PROT 7.1 g/dl (6.4-8.2)
[2022-02-21 12:14] LABS: BASO % 0.2 % (0-2.0); HEMATOCRIT 38.6 % (32.4-45.2); LYMPH % 5.1 % (8-40); MCH 30.4 pg (25.7-33.7); MCHC 33.7 g/dl (32.0-36.0); MEAN CELL VOLUME 90.1 fl (80-96); MEAN PLT VOLUME 9.9 fl (7.5-11.1); MONO % 7.1 % (3.8-10.2); NEUT % 87.6 % (42.8-82.8); PLATELET COUNT 214 10^3/uL (134-434); RBC 4.29 M/mm3 (3.60-5.2); RDW 13.3 % (11.6-15.6); WHITE BLOOD COUNT 18.3 K/mm3 (4.0-10.0)
[2022-02-21 12:14] LABS: EPITHELIAL CELLS FEW /hpf
[2022-02-21] MEDS ORDERED: CEFOXITIN SODIUM 2 GM in DEXTROSE 5%-WATER - 100 ML IVPB ONE (13:24)
[2022-02-21] MEDS ORDERED: PIPERACILLIN/TAZOB 4.5 GM 4.5 GM in DEXTROSE 5%-WATER 100 ML IVPB ONE (13:39)
[2022-02-21] MEDS ORDERED: PIPERACILLIN/TAZOBACTAM 4.5 GM VIAL IVPB ONE (13:47)
[2022-02-21 13:54] LABS: INR 1.11 (0.83-1.09); PROTHROMBIN TIME (PATIENT) 12.8 SEC (9.7-13.0)
[2022-02-21] MEDS ORDERED: BUPIVACAINE HCL 50 ML ONE ×2 (15:48→17:37)
[2022-02-21] MEDS ORDERED: LACTATED RINGERS SOLUTION 1,000 ML/1,000 ML INFUS.BAG IV SCH (16:00)
[2022-02-21] MEDS ORDERED: PROPOFOL 20 ML ONE (16:20)
[2022-02-21] MEDS ORDERED: MIDAZOLAM HCL 2 MG/2 ML SINGLE DOSE VIAL ONE (16:21)
[2022-02-21] MEDS ORDERED: SUCCINYLCHOLINE CHLORIDE 200 MG/10 ML SYRINGE ONE (16:21)
[2022-02-21] MEDS ORDERED: ROCURONIUM BROMIDE 50 MG/5 ML SYRINGE ONE (16:32)
[2022-02-21] MEDS ORDERED: BUPIVACAINE HCL/PF 0.5% (5MG/ML) 10 ML VIAL IJ ONE (17:40)
[2022-02-21] MEDS ORDERED: NEOSTIGMINE METHYLSULFATE 0.5 MG/1 ML - 10 ML MDV ONE (17:52)
[2022-02-21] MEDS ORDERED: ONDANSETRON 4 MG/2 ML VIAL IVPUSH PRN ×3 (17:52→22:28)
[2022-02-21] MEDS ORDERED: LACTATED RINGERS SOLUTION 1,000 ML IV SCH (18:00)
[2022-02-21] MEDS ORDERED: oxyCODONE HCL 5 MG TABLET PO PRN (18:06)
[2022-02-21] MEDS ORDERED: PROMETHAZINE HCL 25 MG/1 ML VIAL ONE (18:10)
[2022-02-21] MEDS ORDERED: PROMETHAZINE HCL 25 MG/1 ML VIAL IVPUSH ONE (18:15)
[2022-02-21] MEDS ORDERED: FAMOTIDINE 20 MG PREMIXED IVPB IVPB ONE (18:15)
[2022-02-21] MEDS ORDERED: FAMOTIDINE 20 MG/50 ML IVPB 20 MG/50 ML MG IVPB ONE (18:15)
[2022-02-21] MEDS ORDERED: ACETAMINOPHEN 1000 MG/100 ML BAG IVPB ONE (19:06)
[2022-02-21] MEDS ORDERED: DEXTROSE 5%-WATER - 50 ML IVPB ONE (21:34)
[2022-02-21] MEDS ORDERED: PIPERACILLIN/TAZOBACTAM 3.375 GM VIAL IVPB ONE (21:34)
[2022-02-21] MEDS ORDERED: PIPERACILLIN/TAZOB 3.375 GM 3.375 GM in DEXTROSE 5%-WATER - 50 ML IVPB SCH (22:00)
[2022-02-21] MEDS: HEPARIN NA (PORCINE) 5,000 UNITS/ML 1ML VIAL SQ SCH (22:22)
[2022-02-22] MEDS: KETOROLAC TROMETHAMINE 30 MG/1 ML VIAL IVPUSH SCH ×2 (02:24→09:28)
[2022-02-22] MEDS ORDERED: DEXTROSE 5%-WATER - 50 ML IVPB ONE (03:19)
[2022-02-22] MEDS ORDERED: PIPERACILLIN/TAZOBACTAM 3.375 GM VIAL IVPB ONE (03:19)
[2022-02-22] MEDS: ACETAMINOPHEN 500 MG TABLET (FP) PO SCH ×2 (03:24→12:11)
[2022-02-22] MEDS: PIPERACILLIN/TAZOB 3.375 GM 3.375 GM in DEXTROSE 5%-WATER - 50 ML IVPB SCH ×2 (05:00→09:50)
[2022-02-22 08:06] LABS: ALBUMIN 2.8 g/dl (3.4-5.0); BILIRUBIN,TOTAL 0.8 mg/dl (0.2-1); CALCIUM 7.9 mg/dl (8.5-10); CREATININE 0.9 mg/dl (0.55-1.3); MAGNESIUM 1.8 mg/dL (1.8-2.4); TOT PROT 5.2 g/dl (6.4-8.2)
[2022-02-22 08:39] LABS: BASO % 0.2 % (0-2.0); EOS % 0.7 % (0-4.5); HEMATOCRIT 32.3 % (32.4-45.2); HEMOGLOBIN 10.9 GM/dL (10.7-15.3); LYMPH % 17.4 % (8-40); MCH 30.6 pg (25.7-33.7); MCHC 33.7 g/dl (32.0-36.0); MEAN CELL VOLUME 90.9 fl (80-96); MEAN PLT VOLUME 10.1 fl (7.5-11.1); MONO % 6.7 % (3.8-10.2); PLATELET COUNT 175 10^3/uL (134-434); RBC 3.56 M/mm3 (3.60-5.2); RDW 13.1 % (11.6-15.6)
[2022-02-22] MEDS: HEPARIN NA (PORCINE) 5,000 UNITS/ML 1ML VIAL SQ SCH (09:28)
[2022-02-22] MEDS ORDERED: PIPERACILLIN/TAZOB 3.375 GM 3.375 GM in DEXTROSE 5%-WATER - 50 ML IVPB SCH (13:00)
[2022-02-22 13:08] VITALS: BP 120/64; PULSE 77; TEMP 98.6
== END 2022-02-22 15:18 | disposition home or self-care (01) ==
LOC: FER 09:26 → FASUSAT 14:57 → SUATTDRO 14:57 → FM/S 14:59 → FASUSAT 02-22 12:19
PROVIDERS: ATTEND Nurse Practitioner Acute Care
PROC: 0DTJ4ZZ Resection of Appendix, Percutaneous Endoscopic Approach (ICD-10-PCS; principal; 2022-02-21 16:43)
DX: K35.80 Unspecified acute appendicitis (principal)
CPT/HCPCS: 36415; 74176-TC; 80053; 81003; 81015; 83735; 84703; 85025; 85610; 85730; 86850; 86900; 86901; 87086; 88304-TC; 94760; 99285-25; C9803-CS; J1644; U0003; U0005